=== PATIENT | female | born 1960 | race Caucasian/White ===

== ENCOUNTER 2016-10-01 09:49 | Observation (INO) | payer OTHER ==
[~2016-10-01] VITALS: Ht 167.6 cm; Wt 95.0 kg
[2016-10-01 09:57] VITALS: BP 133/74; PULSE 60; RESP 18; TEMP 97.9; O2SAT 98
[2016-10-01 10:15] VITALS: BP 133/74; PULSE 60; RESP 18; TEMP 97.9; O2SAT 96
--- NOTE | 2016-10-01 10:15 | RADRPT ---
EXAM DATE/TIME: 10/01/2016 09:56 [place] COMPARISON: No previous studies available for comparison. INDICATIONS : Chest pressure. MEDICAL HISTORY : None. SURGICAL HISTORY : None. ENCOUNTER: Initial ACUITY: 3 weeks PAIN SCORE: 0/10 LOCATION: Bilateral chest FINDINGS: A single view of the chest demonstrates the lungs to be symmetrically aerated without evidence of mas s, infiltrate or effusion. The cardiomediastinal contours are unremarkable. Osseous structures are intact. CONCLUSION: 1. No acute cardiopulmonary findings Dheeraj Odom MD on October 01, 2016 at 10:11 Board Certified Radiologist. This report was verified electronically.
[2016-10-01] MEDS ORDERED: TRAZ100T6 PO (10:23)
[2016-10-01] MEDS ORDERED: GABA300C5 PO (10:23)
[2016-10-01] MEDS ORDERED: MELA5TAB15 PO (10:24)
[2016-10-01] MEDS ORDERED: MAGN500T2 PO (10:24)
[2016-10-01] MEDS ORDERED: ASPIRIN 81 MG CHEW TAB CHEW ONE (10:30)
--- NOTE | 2016-10-01 10:33 | PD ---
HPI Chief Complaint: Chest Pain Time Seen by Provider: 09:52 Travel History International Travel<30 days: No Contact w/Intl Traveler<30days: No Traveled to known affect area: No History of Present Illness HPI Patient is a 56-year-old female presents emergency department for evaluation of left-sided chest pain. She will states that she went to another physician's office today and the recommended that she come to the emergency department to be evaluated. Patient arrival states her pain is been resolved after she was given aspirin prior to arrival. She denies previous similar circumstances, states she has a strong family history of heart disease, high blood pressure and borderline diabetes and borderline high cholesterol. States symptoms been going on and off for the past few days, she cannot elicit any alleviating or exacerbating factors. PFSH Past Medical History Anxiety: Yes Depression: Yes Medical other: Yes (generalized pain) Thyroid Disease: Yes Triglycerides - High: Yes Tetanus Vaccination: Unknown Influenza Vaccination: Yes ?: Not Tubal Ligation: Yes Past Surgical History Appendectomy: Yes Tonsillectomy: Yes Social History Alcohol Use: Yes (occassionally ) Tobacco Use: No Substance Use: No Allergies-Medications (Allergen,Severity, Reaction): Coded Allergies: No Known Allergies (Unverified , 10/01/16) Reported Meds & Prescriptions Reported Meds & Active Scripts Active Reported Magnesium Oxide 500 Mg Tab 500 Mg PO DAILY Melatonin 5 Mg Tab 3 Mg PO HS Trazodone (Trazodone HCl) 100 Mg Tablet 100 Mg PO HS Gabapentin 300 Mg Cap 300 Mg PO TID Review of Systems Except as stated in HPI: all other systems reviewed are Neg Physical Exam Narrative GENERAL: Well-developed, obese but in no obvious distress. SKIN: Focused skin assessment warm/dry. HEAD: Atraumatic. Normocephalic. EYES: Pupils equal and round. No scleral icterus. No injection or drainage. ENT: No nasal bleeding or discharge. Mucous membranes pink and moist. NECK: Trachea midline. No JVD. CARDIOVASCULAR: Regular rate and rhythm. No murmur appreciated. RESPIRATORY: No accessory muscle use. Clear to auscultation. Breath sounds equal bilaterally. GASTROINTESTINAL: Abdomen soft, non-tender, nondistended. Hepatic and splenic margins not palpable. MUSCULOSKELETAL: No obvious deformities. No clubbing. No cyanosis. No edema. NEUROLOGICAL: Awake and alert. No obvious cranial nerve deficits. Motor grossly within normal limits. Normal speech. PSYCHIATRIC: Appropriate mood and affect; insight and judgment normal. Data Data Last Documented VS Vital Signs Date Time Temp Pulse Resp B/P Pulse Ox O2 Delivery O2 Flow Rate FiO2 10/01/16 10:15 60 18 96 Room Air 10/01/16 10:15 97.9 133/74 Orders Electrocardiogram (10/01/16 09:52) Basic Metabolic Panel (Bmp) (10/01/16 09:52) Ckmb (Isoenzyme) Profile (10/01/16 09:52) Complete Blood Count With Diff (10/01/16 09:52) Magnesium (Mg) (10/01/16 09:52) Prothrombin Time / Inr (Pt) (10/01/16 09:52) Act Partial Throm Time (Ptt) (10/01/16 09:52) Troponin I (10/01/16 09:52) Chest, Single Ap (10/01/16 09:52) Ecg Monitoring (10/01/16 09:52) Iv Access Insert/Monitor (10/01/16 09:52) Oximetry (10/01/16 09:52) Oxygen Administration (10/01/16 09:52) Aspirin Chew (Aspirin Chew) (10/01/16 10:30) CKMB (10/01/16 10:30) CKMB% (10/01/16 10:30) Admit Order (Ed Use Only) (10/01/16 ) Labs Laboratory Tests Test 10/01/16 10:30 White Blood Count 6.8 TH/MM3 Red Blood Count 4.59 MIL/MM3 Hemoglobin 13.7 GM/DL Hematocrit 40.2 % Mean Corpuscular Volume 87.5 FL Mean Corpuscular Hemoglobin 29.8 PG Mean Corpuscular Hemoglobin 34.0 % Concent Red Cell Distribution Width 13.3 % Platelet Count 282 TH/MM3 Mean Platelet Volume 8.4 FL Neutrophils (%) (Auto) 54.5 % Lymphocytes (%) (Auto) 34.5 % Monocytes (%) (Auto) 6.5 % Eosinophils (%) (Auto) 3.9 % Basophils (%) (Auto) 0.6 % Neutrophils # (Auto) 3.7 TH/MM3 Lymphocytes # (Auto) 2.4 TH/MM3 Monocytes # (Auto) 0.4 TH/MM3 Eosinophils # (Auto) 0.3 TH/MM3 Basophils # (Auto) 0.0 TH/MM3 CBC Comment DIFF FINAL Differential Comment Prothrombin Time 10.2 SEC Prothromb Time International 0.9 RATIO Ratio Activated Partial 24.5 SEC Thromboplast Time Sodium Level 139 MEQ/L Potassium Level 4.7 MEQ/L Chloride Level 105 MEQ/L Carbon Dioxide Level 26.6 MEQ/L Anion Gap 7 MEQ/L Blood Urea Nitrogen 18 MG/DL Creatinine 0.84 MG/DL Estimat Glomerular Filtration 70 ML/MIN Rate Random Glucose 110 MG/DL Calcium Level 9.2 MG/DL Magnesium Level 2.0 MG/DL Total Creatine Kinase 113 U/L Creatine Kinase MB 1.2 NG/ML Troponin I LESS THAN 0.02 NG/ML Thyroid Stimulating Hormone 2.700 uIU/ML 3rd Gen [facility] Medical Decision Making Medical Screen Exam Complete: Yes Emergency Medical Condition: Yes Interpretation(s) EKG shows no masses rhythm normal axis normal R-wave progression. No concerning ST segment changes. Differential Diagnosis ACS, AMI, pneumonia, GERD. Narrative Course Patient roomed emergency department, chest pain-free while in the emergency department, initial workup EKG and troponin are negative. She does have risk factors and I recommended that she be observed for chest pain she is agreeable.Patient was somewhat concerned for gallbladder however there is no right quadrant pain and is negative. ast and lt as well as alkaline phosphatase are negative. Diagnosis Primary Impression: Chest pain Admitting Information Admitting Physician Requests: Observation Condition: Stable Derek Harding MD Oct 01, 2016 10:33
[2016-10-01 10:55] LABS: AUTOMATED NEUTROPHIL # 3.7 TH/MM3 (1.8-7.7); BASOPHIL % 0.6 % (0.0-2.0); EOSINOPHIL # 0.3 TH/MM3 (0-0.4); EOSINOPHIL % 3.9 % (0.0-4.0); HEMATOCRIT 40.2 % (35.0-46.0); HEMO FLAGS DIFF FINAL; LYMPH % 34.5 % (9.0-44.0); LYMPHOCYTE # 2.4 TH/MM3 (1.0-4.8); MEAN CELL VOLUME 87.5 FL (80.0-100.0); MEAN CORPUSCULAR HEMOGLOBIN 29.8 PG (27.0-34.0); MONO % 6.5 % (0.0-8.0); NEUT % 54.5 % (16.0-70.0); PLATELET COUNT 282 TH/MM3 (150-450); RED BLOOD COUNT 4.59 MIL/MM3 (4.00-5.30); RED CELL DISTRIBUTION WIDTH 13.3 % (11.6-17.2); WHITE BLOOD COUNT 6.8 TH/MM3 (4.0-11.0)
[2016-10-01 10:58] LABS: APTT (PATIENT) 24.5 SEC (24.3-30.1); INTERNATIONAL NORMALIZED RATIO 0.9 RATIO; PROTHROMBIN TIME - PATIENT 10.2 SEC (9.8-11.6)
[2016-10-01 11:10] LABS: ANION GAP 7 MEQ/L (5-15); BICARBONATE 26.6 MEQ/L (21.0-32.0); BLOOD UREA NITROGEN 18 MG/DL (7-18); CHLORIDE 105 MEQ/L (98-107); CREATINE KINASE 113 U/L (26-192); GLOMERULAR FILTRATION RATE 70 ML/MIN (>89); SODIUM (NA) 139 MEQ/L (136-145)
[2016-10-01 11:12] LABS: POTASSIUM 4.7 MEQ/L (3.5-5.1)
[2016-10-01 11:24] LABS: CKMB 1.2 NG/ML (0.5-3.6)
[2016-10-01] MEDS ORDERED: ONDANSETRON HCL 4 MG/2 ML VIAL IV PRN (12:15)
[2016-10-01] MEDS ORDERED: NITROGLYCERIN 0.4 MG SL 25 TABS/BTL SL PRN (12:15)
[2016-10-01] MEDS ORDERED: SODIUM CHLORIDE 0.9% FLUSH 10 ML FLUSH IV FLUSH PRN (12:15)
--- NOTE | 2016-10-01 13:15 | HHI.HP ---
HPI Primary Care Physician [facility] Chief Complaint Chest pain History of Present Illness 56-year-old female with no significant medical history presents to the emergency room for further evaluation chest pain. Onset 4 AM. Location substernal. Characterized as heaviness, denies pain or discomfort or feelings of indigestion. Duration a few minutes. Pain would gradually begin been gradually going away. No associated symptoms of nausea, vomiting, shortness of breath, or diaphoresis. No known precipitating factors no known relieving factors. No particular movement makes pain better or worse. Reports 3 weeks ago severe epigastric discomfort described as intermittent squeezing with a duration of 2 hours. Associated symptoms included nausea. Since this time substernal intermittent heaviness, with a worse episode this morning waking her from sleep. This morning she went to the [facility] clinic and was directed to the emergency room. Reports she is concerned pain may be from her gallbladder, stating "I've been eating very bad lately and gained 20 pounds in the last 2 months" (Monserrat Jauregui) Review of Systems General: No fatigue,weakness, fever, chills, or recent illness. HEENT: Daily headache 3 months relates headache to allergy/sinus issues. Currently complains of a mild headache. No vision changes, no nasal congestion or drainage. Reports occasionally feels like "food in stuck in my throat." Denies any known acid reflex. No burning or sour taste. CV: As stated above. No current CP. No chest pressure, palpitations, intermittent leg pain, or dizziness. RESP: No SOB, cough, wheeze, recent URI, or history of asthma GI: No nausea, vomiting, bowel changes, diarrhea, constipation, pain, distention , melena, or blood in the stool. Unintentional weight gain of 20 pounds in the last 2 months stating "I've been eating really bad and think I am addicted to sugar. I also eat a lot of foods with sodium in it." : No dysuria, urgency, frequency, history of frequent UTIs, or history of kidney stones. Reports polyuria, sometimes waking up four times in evening hours to void. EXT: No lower leg edema, no paraesthesias MS: No discomfort or change in ROM NEURO: No change in memory, difficulty with balance, LOC, or motor/sensory deficits PSYCH: History of anxiety and depression, reports she should be taking Wellbutrin but stopped taking many months ago. No Suicidal ideation. Reports situational stress and depression. 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 SKIN: No rashes, no concerning lesions (Monserrat Jauregui) Past Family Social History Allergies: Coded Allergies: No Known Allergies (Unverified , 10/01/16) Past Medical History Anxiety, depression, fibromyalgia Past Surgical History Appendectomy, tubal ligation, tonsillectomy Reported Medications Active Reported Magnesium Oxide 500 Mg Tab 500 Mg PO DAILY Melatonin 5 Mg Tab 3 Mg PO HS Trazodone (Trazodone HCl) 100 Mg Tablet 100 Mg PO HS Gabapentin 300 Mg Cap 300 Mg PO TID Active Ordered Medications Current Medications Medications (Trade) Dose Ordered Sig/Ngozi Route Start Time Stop Time Status Last Admin (Tylenol) 500 mg Q4H PRN PO 10/01/16 12:15 UNV (Zofran Inj) 4 mg Q6H PRN IV 10/01/16 12:15 UNV (Nitrostat Sl) 0.4 mg Q5M PRN SL 10/01/16 12:15 UNV (Aspirin) 325 mg DAILY PO 10/02/16 09:00 UNV Family History Noncontributory for early onset cardiovascular disease. Father alivehypertension. Mother aliveAlzheimer's and diabetes. Social History No known diabetes, hypertension, or hyperlipidemia. Years ago was told she was a borderline diabetic, had elevated triglycerides, and was hypothyroid. Follows at [facility] states she was never started on any medication for above nor was she told she had any of those diagnoses. Remote smoker, quit in her early 20s Occasional alcohol. Denies any recreational drug use. Endorses a sedentary lifestyle. Past cardiac testing None (Monserrat Jauregui) Physical Exam Vital Signs Vital Signs Date Time Temp Pulse Resp B/P Pulse Ox O2 Delivery O2 Flow Rate FiO2 10/01/16 10:15 60 18 96 Room Air 10/01/16 10:15 97.9 60 18 133/74 96 Room Air 10/01/16 10:15 97.9 60 18 133/74 96 Room Air 10/01/16 10:15 96 Room Air 10/01/16 09:57 97.9 60 18 133/74 98 Physical Exam GENERAL: Alert WN, WD, NAD, pleasant, obese, female HEAD: NC, AT EYES: Sclera clear, conjunctiva without injection, pupils equal and round ENT: Mucous membranes pink and moist NECK: Supple, no masses, trachea midline CV: RRR, without murmur, rub, gallop, no JVD, S1-S2 no S3-S4. RESP: Clear lungs throughout bilateral, no crackles, wheeze, rhonchi, symmetrical chest rise, nonlabored, able to speak in full sentences ABD: Soft, NT, ND, no masses, positive bowel tones, obese, negative Robertson's sign BACK: No CVAT, no scoliosis EXT: Pulses +24, trace dependent edema lower extremities MS: Normal tone 4 extremities, nontender, no obvious deformities, full range of motion NEURO: CN II through CN XII grossly intact, motor strength 5/5, gait WNL PSYCH: A+O 3, pleasant affect, appropriate speech, appropriate mood and affect , insight and judgment SKIN: Normal turgor, normal texture, no lesions, no rashes, brisk cap refill, even hair distribution Laboratory Laboratory Tests Test 10/01/16 10:30 White Blood Count 6.8 Red Blood Count 4.59 Hemoglobin 13.7 Hematocrit 40.2 Mean Corpuscular Volume 87.5 Mean Corpuscular Hemoglobin 29.8 Mean Corpuscular Hemoglobin 34.0 Concent Red Cell Distribution Width 13.3 Platelet Count 282 Mean Platelet Volume 8.4 Neutrophils (%) (Auto) 54.5 Lymphocytes (%) (Auto) 34.5 Monocytes (%) (Auto) 6.5 Eosinophils (%) (Auto) 3.9 Basophils (%) (Auto) 0.6 Neutrophils # (Auto) 3.7 Lymphocytes # (Auto) 2.4 Monocytes # (Auto) 0.4 Eosinophils # (Auto) 0.3 Basophils # (Auto) 0.0 CBC Comment DIFF FINAL Differential Comment Prothrombin Time 10.2 Prothromb Time International 0.9 Ratio Activated Partial 24.5 Thromboplast Time Sodium Level 139 Potassium Level 4.7 Chloride Level 105 Carbon Dioxide Level 26.6 Anion Gap 7 Blood Urea Nitrogen 18 Creatinine 0.84 Estimat Glomerular Filtration 70 Rate Random Glucose 110 Calcium Level 9.2 Magnesium Level 2.0 Total Creatine Kinase 113 Creatine Kinase MB 1.2 Troponin I LESS THAN 0.02 (Monserrat Jauregui) Result Diagram: 10/01/16 1030 10/01/16 1030 Imaging Last Impressions Chest X-Ray 10/01/16 0952 Signed Impressions: Service Date/Time: Saturday, October 01, 2016 09:56 - CONCLUSION: 1. No acute cardiopulmonary findings Dheeraj Odom MD Course EKG Normal sinus rhythm, normal axis, no ST or T-segment changes (Monserrat Jauregui) Assessment and Plan Assessment and Plan #1 Atypical chest painadmitted to chest pain center. Rule out with serial EKGs and cardiac enzymes. Will be seen and evaluated by Dr. Rigo Ashraf. Discussed with patient if she is ruled out for ACS will proceed with treadmill stress testing. She is agreeable to plan of care. #2 GERDGI cocktail #3 Depression-encouraged her to speak with her PCP about possible restarting Wellbutrin or a different antidepressant if her sadness and overeating continues. Encouraged daily activity, getting plenty of rest, and eating a well balanced diet. She is agreeable to plan. Discussed in length importance of preventative medical care including daily activity, weight loss, following a low sodium diet, and drinking plenty of water , avoiding sugary drinks. Follow up with PCP regarding her concern of past borderline diabetes. TSH level admitted to current chemistry. (Monserrat Jauregui) Assessment and Plan Agree with above. Mid epigastric tenderness suggests gastritis. Will trt GI cocktail. (Rigo Ashraf MD) Monserrat Jauregui Oct 01, 2016 13:15 Rigo Ashraf MD Oct 01, 2016 16:30
[2016-10-01 14:15] VITALS: BP 109/80
[2016-10-01 14:50] VITALS: BP 120/78; PULSE 54; RESP 20; TEMP 96.8; O2SAT 100
[2016-10-01 15:46] LABS: CREATINE KINASE 95 U/L (26-192)
[2016-10-01 16:01] VITALS: BP 127/84; PULSE 56; RESP 16; TEMP 98.9; O2SAT 97
--- NOTE | 2016-10-01 16:46 | EKG ---
Date Performed: 10/01/2016 Time Performed: 10:07:56 PTAGE: 56 years EKG: SINUS BRADYCARDIA BORDERLINE ECG PREVIOUS TRACING : 07/26/2016 23.26 DOCTOR: Kristie Padilla Interpretating Date/Time 10/01/2016 16:44:20
[2016-10-01] MEDS ORDERED: LIDOCAINE VISCOUS 2% SOLN 15 ML UDC SWISH-SWAL ONE (17:00)
[2016-10-01] MEDS ORDERED: ALUMINUM/MAGNESIUM/SIMETH 30 ML CUP PO ONE (17:00)
[2016-10-01] MEDS: GABAPENTIN 300 MG CAP PO SCH (18:44)
[2016-10-01 20:17] LABS: CREATINE KINASE 85 U/L (26-192)
[2016-10-01 20:46] VITALS: BP 105/74; PULSE 58; RESP 17; TEMP 98.5; O2SAT 95
[2016-10-01] MEDS ORDERED: traZODone HCL 100 MG TAB PO SCH (21:00)
[2016-10-01] MEDS: ACETAMINOPHEN 500 MG CPLT PO PRN (21:21)
[2016-10-01] MEDS: SODIUM CHLORIDE 0.9% FLUSH 10 ML FLUSH IV FLUSH SCH (21:21)
[2016-10-02] VITALS (7 sets, daily range): BP systolic 109–120; BP diastolic 68–74; PULSE 58–76; RESP 15–16; TEMP 97.7–98.2; O2SAT 95–99
[2016-10-02] MEDS: GABAPENTIN 300 MG CAP PO SCH (08:27)
[2016-10-02] MEDS: SODIUM CHLORIDE 0.9% FLUSH 10 ML FLUSH IV FLUSH SCH (08:27)
[2016-10-02] MEDS: ACETAMINOPHEN 500 MG CPLT PO PRN (08:32)
[2016-10-02] MEDS ORDERED: ASPIRIN 325 MG TAB PO SCH (09:00)
--- NOTE | 2016-10-02 10:02 | HHI.DCPOC ---
Discharge Care Plan Diagnosis: (1) Atypical chest pain (2) GERD (gastroesophageal reflux disease) Goals to Promote Your Health * To prevent worsening of your condition and complications * To maintain your health at the optimal level Directions to Meet Your Goals Take your medications as prescribed Follow your dietary instruction Follow activity as directed Keep your appointments as scheduled Take your immunizations and boosters as scheduled If your symptoms worsen call your PCP, if no PCP go to Urgent Care Center or Emergency Room Smoking is Dangerous to Your Health. Avoid second hand smoke Call the 24-hour hour crisis hotline for domestic abuse at Monserrat Jauregui Oct 02, 2016 10:02
--- NOTE | 2016-10-02 13:25 | EKG ---
Date Performed: 10/01/2016 Time Performed: 14:28:36 PTAGE: 56 years EKG: SINUS BRADYCARDIA BORDERLINE ECG PREVIOUS TRACING : 10/01/2016 10.07 Since previous tracing, no significant change noted DOCTOR: Rigo Ashraf Interpretating Date/Time 10/02/2016 13:19:49
--- NOTE | 2016-10-02 13:26 | TR ---
Date Performed: 10/02/2016 Time Performed: 08:56:49 DOCTOR: Rigo Ashraf DRUG LIST: CLINICAL HISTORY: CHEST PAIN REASON FOR TEST: REASON FOR ENDING: OBSERVATION: CONCLUSION: Zander protocol completed. Stopped sec to exceeding target heart rate and leg fatigue . Maximum DJ=215 Target HR Achieved=87.0% Maximum FJ=945/80 Total Exercise Time=7:01. No reprod chest pain or discomfort. J point depression inferiorly, upsloping segments.No ectopy. Normal bp response . Good exercise tolerance. Recovery quick and unremarkable. COMMENTS: Patient exercised using the Zander protocol. No electrocardiographic changes were seen to suggest ischemia. Hemodynamic response to exercise was normal. No significant arrhythmia was prese nt.
== END 2016-10-02 11:28 | disposition home or self-care (01) ==
LOC: NEPE 09:49 → NEDA 12:03 → NEPHCDU 14:13
PROVIDERS: ADMIT Internal Medicine Cardiovascular Disease; ATTEND Internal Medicine Cardiovascular Disease
DX: R07.89 Other chest pain (principal); K21.9 Gastro-esophageal reflux disease without esophagitis; F32.9 Major depressive disorder, single episode, unspecified; R10.816 Epigastric abdominal tenderness; R00.1 Bradycardia, unspecified; R51 Headache; R63.5 Abnormal weight gain; R35.8 Other polyuria; F41.9 Anxiety disorder, unspecified; M79.7 Fibromyalgia; R52 Pain, unspecified; E03.9 Hypothyroidism, unspecified; R73.03 Prediabetes; E78.1 Pure hyperglyceridemia; E66.9 Obesity, unspecified; Z79.899 Other long term (current) drug therapy; Z87.891 Personal history of nicotine dependence; Z82.49 Family history of ischemic heart disease and other diseases of the circulatory system
CPT/HCPCS: 71010; 80048; 82550; 82552; 83735; 84443; 84484; 85025; 85610; 85730; 93005; 93017; 99285; G0378